=== PATIENT | female | born 2000 | race Caucasian/White ===

== ENCOUNTER 2020-10-12 14:50 | Emergency (ER) | payer MEDICAID, SELFPAY ==
[2020-10-12 14:59] VITALS: BP 136/74; PULSE 65; RESP 17; TEMP 36.8; O2SAT 99; BMI 72.1
--- NOTE | 2020-10-12 15:06 | ED.GENADULT ---
HPI - General Adult General Chief complaint: General Medical Stated complaint: RT MIDDLE FINGER INJ Time Seen by Provider: 10/12/20 14:56 History of Present Illness HPI narrative: Patient complains of right middle finger pain around the nail, there is no fever chills Related Data Previous Rx's Medication Instructions Recorded clindamycin HCl 300 mg PO Q6H 5 Days #20 cap 10/12/20 ibuprofen 600 mg PO Q6H PRN #14 tab 10/12/20 Allergies Allergy/AdvReac Type Severity Reaction Status Date / Time No Known Allergies Allergy Verified 10/12/20 15:03 Review of Systems Review of Systems: Right middle finger pain, no fever no chills no dizziness no joint pain no other rash no numbness or weakness PMFSH Past Medical History Medical History (Updated 10/12/20 @ 15:52 by MISHEL Montano) No known health problems Social History Social History Advance Directives: No Advance Directives Information Provided: No Physical Exam Vital Signs: Vital Signs: Last Vital Signs Temp 98.2 F 10/12/20 14:59 Pulse 65 10/12/20 14:59 Resp 17 10/12/20 14:59 BP 136/74 10/12/20 14:59 Pulse Ox 99 10/12/20 14:59 Body Mass Index 72.1 General appearance no distress comfortable relaxed cooperative Neck is supple Respiratory no distress Extremities the right 3rd finger has a paronychia on the medial edge of the 3rd finger nail bed with mild swelling mild redness mild tenderness there is no felon there is full range of motion in all joints all tendons are normal there is no surrounding erythema Course Course Course Narrative: Procedure note Left 3rd finger paronychia Anesthesia is 6 cc 1% lidocaine digital block The nailbed is lifted with the discharge of a small amount of pus, no packing was placed Dressing was placed Plan is warm soaks antibiotic for 5 days return if worse Discharge Plan Discharge Clinical Impression: Paronychia Patient Disposition: Home, Self-Care Additional Instructions: We cleaned out the infection and pus was drained Take antibiotic for 5 days If antibiotic cause any diarrhea. Immediately Return any time if worse or any concerns Prescriptions: New clindamycin HCl 300 mg capsule 300 mg PO Q6H 5 Days Qty: 20 RF: 0 ibuprofen 600 mg tablet 600 mg PO Q6H PRN (Reason: pain) Qty: 14 RF: 0
[2020-10-12] MEDS: Lidocaine HCl 1 % MPF 5 ML VIAL SUBCUT ×2 (15:13)
== END 2020-10-12 15:58 | disposition home or self-care (01) ==
PROVIDERS: Emergency Provider Emergency Medicine
DX: L03.012 Cellulitis of left finger (principal); M79.644 Pain in right finger(s)
CPT/HCPCS: 10060; 99283; 99284